=== PATIENT | male | born 1940 | race African-American/Black ===

== ENCOUNTER 2016-05-11 07:49 | Day surgery (SDC) | payer MEDICARE, OTHER ==
--- NOTE | ~2016-05-11 | EGD ---
EGD REPORT [facility] [address] [place]. [address] NAME: CAS ROCHA JR : 38 STATUS : [facility] [place] PAT#: [id number] AGE: 76 ADM/REG DATE : 05/11/16 MR#: [id number] REPORT SERV DATE: 05/11/16 DICTATED BY: ARCADIO SANTOS DATE: 05/11/16 REPORT STATUS : Draft TRANS[facility]IBED BY: [facility] DATE: 05/11/16 Endoscopy Center Patient Name: Cas Rocha Jr Date of : 1940 Attending MD: ARCADIO SANTOS MD Procedure Date No Time: 05/11/2016 Procedure: Upper GI endoscopy Indications: Dysphagia Referring MD: Ivis Esparza Medicines: Propofol per Anesthesia Complications: No immediate complications. Procedure: Pre-Anesthesia Assessment: - ASA Grade Assessment: IV - A patient with severe systemic disease that is a constant threat to life. After obtaining informed consent, the endoscope was passed under direct vision. Throughout the procedure, the patient's blood pressure, pulse, and oxygen saturations were monitored continuously. The GIF [id number] was introduced through the mouth, and advanced to the second part of duodenum. The upper GI endoscopy was accomplished without difficulty. The patient tolerated the procedure well. Findings: A medium-sized hiatus hernia was present. A mild Schatzki ring (acquired) was found at the gastroesophageal junction. A guidewire was placed and the scope was withdrawn. Dilation was performed with a Savary dilator with no resistance at 54 Fr. Diffuse mild inflammation characterized by erosions and erythema was found in the stomach. The duodenal bulb, first part of the duodenum and 2nd part of the duodenum were normal. Impression: - Hiatus hernia. - Mild Schatzki ring. Dilated. - Chronic gastritis. - Normal duodenal bulb, first part of the duodenum and 2nd part of the duodenum. Recommendation: - Discharge patient to home (ambulatory). - Return to nurse practitioner in 3 weeks. Procedure Code(s): --- Professional --- 12923, Esophagogastroduodenoscopy, flexible, transoral; with insertion of guide wire followed by passage of EGD REPORT [facility] [address] [place], [place] [address]. [address] NAME: CAS ROCHA JR : [birth year] STATUS : [facility] [place] PAT#: [id number] AGE: 76 ADM/REG DATE : 05/11/16 MR#: [id number] REPORT SERV DATE: 05/11/16 DICTATED BY: ARCADIO SANTOS. DATE: 05/11/16 REPORT STATUS : Draft TRANSCRIBED BY: [employer] DATE: 05/11/16 dilator(s) through esophagus over guide wire Diagnosis Code(s): --- Professional --- K44.9, Diaphragmatic hernia without obstruction or gangrene K22.2, Esophageal obstruction K29.50, Unspecified chronic gastritis without bleeding R13.10, Dysphagia, unspecified CPT copyright 2013 [employer]. All rights reserved. The codes documented in this report are preliminary and upon dry molder review may be revised to meet current compliance requirements. Arcadio Santos MD ARCADIO SANTOS MD 05/11/2016 9:31 AM This report has been signed electronically. Number of Addenda: 0 Note Initiated On: 05/11/2016 9:18 AM [address] [facility] [place] [address]
[~2016-05-11 07:49] MED LIST: FLOMAX4 PO; FLORINEF0.1 MG PO; GLUCPH PO; LEVOTHYROXIN100 MCG PO; LIPITOR10 PO; LOP50 PO; NEUPRO1 EAC1 TOP; NORCO1 TAB PO; NORV25 PO; PRILO PO; PROSCAR5 PO; SIN25-250 PO
== END 2016-05-11 23:59 | disposition home health service (06) ==
LOC: DMU 07:49
PROVIDERS: Internal Medicine Gastroenterology
PROC: 0D748ZZ Dilation of Esophagogastric Junction, Via Natural or Artificial Opening Endoscopic (ICD-10-PCS; principal; 2016-05-11 10:00)
DX: K22.2 Esophageal obstruction (principal); K29.50 Unspecified chronic gastritis without bleeding; K44.9 Diaphragmatic hernia without obstruction or gangrene; E11.9 Type 2 diabetes mellitus without complications; I95.1 Orthostatic hypotension; E78.00 Pure hypercholesterolemia, unspecified; G20 Parkinson's disease; I10 Essential (primary) hypertension; E03.9 Hypothyroidism, unspecified; K21.9 Gastro-esophageal reflux disease without esophagitis; Z85.46 Personal history of malignant neoplasm of prostate; Z79.899 Other long term (current) drug therapy; Z87.891 Personal history of nicotine dependence; Z98.890 Other specified postprocedural states
CPT/HCPCS: 82962